=== PATIENT | male | born 1955 | race Caucasian/White ===

== ENCOUNTER 2017-08-11 16:53 | Inpatient (IN) | payer BC ==
[~2017-08-11] VITALS: Ht 167.6 cm; Wt 68.0 kg
[2017-08-11 16:53] VITALS: BP_SYST 161
[2017-08-11] MEDS ORDERED: ASPIRIN 81 MG TAB.CHEW PO ONE (17:15)
[2017-08-11 17:34] LABS: BASOPHILS # (AUTO) 0.1 K/uL (0.0-0.2); BASOPHILS % (AUTO) 0.7 % (0.0-2.0); EOSINOPHILS # (AUTO) 0.4 K/uL (0.0-0.4); EOSINOPHILS % (AUTO) 4.7 % (0.0-4.0); HEMATOCRIT 49.2 % (36-54); HEMOGLOBIN 16.5 g/dL (14.0-18.0); LYMPHOCYTES # (AUTO) 2.6 K/uL (1.0-5.5); LYMPHOCYTES % (AUTO) 28.6 % (20.5-51.5); MEAN CORPUSCULAR HEMOGLOBIN 30 pg (27-31); MEAN CORPUSCULAR HGB CONC 34 % (32-36); MEAN CORPUSCULAR VOLUME 89 fL (79.0-98.0); MONOCYTES # (AUTO) 0.6 K/uL (0.0-1.0); MONOCYTES % (AUTO) 6.7 % (1.7-9.3); NEUTROPHILS # (AUTO) 5.5 K/uL (1.8-7.7); NEUTROPHILS % (AUTO) 59.3 % (40.0-70.0); PLATELET COUNT (AUTO) 339 K/uL (130-430); RED BLOOD CELL COUNT(AUTO) 5.53 MIL/uL (4.2-6.2); RED CELL DISTRIBUTION WIDTH 12.4 % (9.0-15.0); WHITE BLOOD COUNT (AUTO) 9.2 K/uL (4.8-10.8)
[2017-08-11 17:38] LABS: CALCIUM 9.5 mg/dL (8.4-11.0); CREATININE 1.07 mg/dL (0.55-1.30); POTASSIUM 3.9 mmol/L (3.5-5.1)
[2017-08-11 17:41] LABS: PROTHROMBIN TIME 9.8 SECS (9.5-12.5)
[2017-08-11 17:43] LABS: ALBUMIN 4.1 g/dL (3.4-4.8); TOTAL BILIRUBIN 0.4 mg/dL (0.0-1.0)
[2017-08-11] MEDS ORDERED: LIP10 PO (18:24)
[2017-08-11 18:46] VITALS: BP_SYST 150
[2017-08-11 19:15] VITALS: BP_SYST 145
[2017-08-11 20:00] VITALS: BP_SYST 145
[2017-08-11] MEDS ORDERED: ATORVASTATIN 10 MG TABLET PO SCH (21:00)
[2017-08-11] MEDS: NORMAL SALINE 5 ML DISP.SYRIN IVF SCH (21:35)
[2017-08-12 00:47] VITALS: BP_SYST 140
[2017-08-12] MEDS: NORMAL SALINE 5 ML DISP.SYRIN IVF SCH ×2 (05:11→14:38)
[2017-08-12 08:20] VITALS: BP_SYST 129
[2017-08-12] MEDS ORDERED: ASPIRIN 325 MG TABLET PO ONE (09:15)
[2017-08-12 12:12] VITALS: BP_SYST 148
[2017-08-12 16:05] VITALS: BP_SYST 145
[2017-08-12 16:08] VITALS: BP_SYST 133
[2017-08-13] MEDS ORDERED: ASPIRIN 325 MG TABLET PO SCH (09:00)
== END 2017-08-12 16:30 | disposition home or self-care (01) | DRG 313 ==
LOC: SED 16:53 → STU 18:21
PROVIDERS: ADMIT Internal Medicine Hospice and Palliative Medicine; ATTEND Internal Medicine Hospice and Palliative Medicine
DX: R07.89 Other chest pain (principal); E78.00 Pure hypercholesterolemia, unspecified; Z82.49 Family history of ischemic heart disease and other diseases of the circulatory system; Z88.0 Allergy status to penicillin; Z90.49 Acquired absence of other specified parts of digestive tract
CPT/HCPCS: 36415; 71045; 80053; 82550-TC; 84484; 85025; 85610-TC; 93005; 93017; 99285